=== PATIENT | male | born 1990 | race Caucasian/White ===

== ENCOUNTER 2019-01-16 14:47 | Emergency (ER) | payer OTHER ==
[2019-01-16] MEDS ORDERED: predniSONE 20 MG Tab PO ONE (15:43)
[2019-01-16] MEDS ORDERED: Ketorolac 60 MG/2 ML SDV IM ONE (15:43)
[2019-01-16] MEDS ORDERED: Cyclobenzaprine 10 MG Tab PO ONE (15:43)
--- NOTE | 2019-01-16 15:47 | EDM.PDOC ---
ED HPI GENERAL MEDICAL PROBLEM - General Chief Complaint: Back Pain or Injury Stated Complaint: BACK INJURY - VIA [facility] Time Seen by Provider: 01/16/19 15:30 Source of Information: Reports: Patient, EMS, Family History Limitations: Reports: No Limitations - History of Present Illness INITIAL COMMENTS - FREE TEXT/NARRATIVE: Alert 28 yo male present via EMS for acute right lower back pain which radiates across lower back. This am he was trying to move a coffee tablet and felt a twinge in his back. Patient laid down for a few hours and put ice on his back for 15 minutes. Patient got up to walk to the bathroom and had severe pain sitting down and getting up off the toilet. Patient's pain was so severe that he laid on the floor until EMS arrived to help him up. Patient was given Fentanyl 50mcg per EMS with minimal to no improvement of pain. Patient denies any lost of bowel or bladder function, he has a history of mild to moderate intermittent back pain in the pat but not as severe. 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 Patient is not work related. back Pain Score (Numeric/FACES): 6 - Related Data Allergies Allergy/AdvReac Type Severity Reaction Status Date / Time No Known Allergies Allergy Verified 01/16/19 15:08 Home Meds: Home Meds Cetirizine [ZyrTEC] 10 mg PO DAILY 01/16/19 [History] Cyclobenzaprine [Flexeril] 5 - 10 mg PO TID PRN 5 Days #15 tab 01/16/19 [Rx] Ketorolac [Toradol] 10 mg PO TID PRN 5 Days #15 tab 01/16/19 [Rx] predniSONE [Prednisone] 20 mg PO BID 5 Days #10 tablet 01/16/19 [Rx] Past Medical History - Past Health History Medical/Surgical History: Denies Medical/Surgical History Social & Family History - Tobacco Use Smoking Status *Q: Never Smoker - Caffeine Use Caffeine Use: Reports: Coffee, Soda - Recreational Drug Use Recreational Drug Use: No ED ROS GENERAL - Review of Systems Review Of Systems: ROS reveals no pertinent complaints other than HPI. ED EXAM,LOWER BACK PAIN/INJURY - Physical Exam Exam: See Below Exam Limited By: No Limitations General Appearance: Alert, WD/WN, Moderate Distress (worse with movement) Eye Exam: Bilateral Eye: EOMI, PERRL Ears: Normal External Exam, Hearing Grossly Normal Nose: Normal Inspection, Normal Mucosa, No Blood Throat/Mouth: Normal Inspection, Normal Lips, Normal Voice, No Airway Compromise Head: Atraumatic, Normocephalic Neck: Normal Inspection, Supple, Non-Tender, Full Range of Motion Respiratory/Chest: No Respiratory Distress, Lungs Clear, Normal Breath Sounds Cardiovascular: Normal Peripheral Pulses, Regular Rate, Rhythm GI/Abdominal: Normal Bowel Sounds, Soft, Non-Tender Back Exam: Normal Inspection, Decreased Range of Motion (limited by pain. ), Muscle Spasm (likely but unable to locate by palpation), Other (Unable to reproduce pain with palpation of paravertebral or latissisum muscles). No: CVA Tenderness (R), CVA Tenderness (L), Paraspinal Tenderness, Vertebral Tenderness Extremities: Normal Inspection, Normal Range of Motion, Non-Tender, No Pedal Edema, Normal Capillary Refill Neurological: Alert, Normal Mood/Affect, Normal Dorsiflexion, CN II-XII Intact, Normal Plantar Flexion, Normal Gait, Normal Reflexes, No Motor/Sensory Deficits , Oriented x 3 Psychiatric: Normal Affect, Normal Mood Skin Exam: Warm, Dry, Intact, Normal Color, No Rash Course - Vital Signs Last Recorded V/S: Last Vital Signs Temp 35.8 C 01/16/19 15:06 Pulse 65 01/16/19 15:06 Resp 20 01/16/19 15:06 BP 122/72 01/16/19 15:06 Pulse Ox 99 01/16/19 15:06 - Orders/Labs/Meds Meds: Medications Discontinued Medications Generic Name Dose Route Start Last Admin Trade Name Cheryle PRN Reason Stop Dose Admin Cyclobenzaprine HCl 10 mg 01/16/19 15:43 01/16/19 16:12 Flexeril PO 01/16/19 15:44 10 mg ONETIME ONE Administration Ketorolac Tromethamine 60 mg 01/16/19 15:43 01/16/19 16:12 Toradol IM 01/16/19 15:44 60 mg ONETIME ONE Administration Prednisone 60 mg 01/16/19 15:43 01/16/19 16:12 Prednisone PO 01/16/19 15:44 60 mg ONETIME ONE Administration - Re-Assessments/Exams Free Text/Narrative Re-Assessment/Exam: Patient was reexamined and able to walk to the bathroom with improvement of pain which is now under good control. He has continued discomfort but not a severe and tolerable at time of discharged. Discussed back pain symptoms that should bring him back to ER or follow-up with PCP. Pain has not lasted greater than 6 wks, no significant trauma, fall or injury. Patient has no systemic symptoms or hard neurologic concerns that would warrant further imaging at this time. Patient is comfortable going home at this time with . Home care instructions reviewed, medications and exercise reviewed. 01/16/19 16:50 Departure - Departure Time of Disposition: 16:38 Disposition: Home, Self-Care 01 Clinical Impression: Low back strain - Discharge Information Prescriptions: Cyclobenzaprine [Flexeril] 5 - 10 mg PO TID PRN 5 Days #15 tab PRN Reason: Muscle Spasm Ketorolac [Toradol] 10 mg PO TID PRN 5 Days #15 tab PRN Reason: Pain predniSONE [Prednisone] 20 mg PO BID 5 Days #10 tablet Instructions: Low Back Sprain, Lumbosacral Strain, Cryotherapy, Low Back Strain , Low Back Strain Rehab-SportsMed, Back Injury Prevention, [id number] Referrals: PCP,None [Primary Care Provider] - Forms: ED Department Discharge Additional Instructions: 1. Ice 15-20 minutes 3-4 times per day x 3 days then alternate with heat per comfort. 2. Prednisone 20mg am and pm x 5 days or 400mg every am x 5 days. 3. Toradol every 6 hours (not within 2 hrs) of prednisone duie to GI concerns eat with medications OR Ibuprofen 600-800mg every 6 hours with food for pain, swelling and inflammation (not same day as Toradol). 4. 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 5. Follow Low Back strain/spams and stretching/exercise information given. Continue regular activity walking and moving every 15-20 minute unless sleeping. 6. May add Tylenol 500-1000mg every 6 hours for mild pain if needed. 7. Call PCP of choice for evaluation in 2 weeks if continued symptoms sooner if not improving with treatment, medications and stretching/exercise instructions. - Problem List & Annotations (1) Low back strain SNOMED Code(s): 466653755 Code(s): S39.012A - STRAIN OF MUSCLE, FASCIA AND TENDON OF LOWER BACK, INIT Status: Acute Current Visit: Yes
== END 2019-01-16 17:18 | disposition home or self-care (01) ==
LOC: JP.ED 14:47
DX: S39.012A Strain of muscle, fascia and tendon of lower back, initial encounter (principal); X50.1XXA Overexertion from prolonged static or awkward postures, initial encounter; Y93.F2 Activity, caregiving, lifting
CPT/HCPCS: 96372; 99283; A9270; J1885

== ENCOUNTER 2020-04-19 13:02 | Emergency (ER) | payer SELFPAY ==
[2020-04-19] MEDS ORDERED: Nitroglycerin 0.4 MG Tab.SL SL ONE (14:09)
--- NOTE | 2020-04-19 14:45 | EDM.PDOC ---
ED HPI GENERAL MEDICAL PROBLEM - General Chief Complaint: ENT Problem Stated Complaint: OBJECT LODGED IN THROAT Time Seen by Provider: 04/19/20 14:30 Source of Information: Reports: Patient, RN History Limitations: Reports: No Limitations - History of Present Illness Onset: Today, Sudden Duration: Hour(s): Location: Reports: Neck Severity: Mild Improves with: Reports: None Worsens with: Reports: None Throat Pain Score (Numeric/FACES): 4 - Related Data Allergies Allergy/AdvReac Type Severity Reaction Status Date / Time No Known Allergies Allergy Verified 04/19/20 13:30 Home Meds: Home Meds Cetirizine [ZyrTEC] 10 mg PO DAILY 01/16/19 [History] Past Medical History - Past Health History Medical/Surgical History: Denies Medical/Surgical History - Past Surgical History GI Surgical History: Reports: Hernia Repair/Other Social & Family History - Tobacco Use Tobacco Use Status *Q: Never Tobacco User - Caffeine Use Caffeine Use: Reports: Coffee, Soda - Recreational Drug Use Recreational Drug Use: No ED ROS ENT - Review of Systems Review Of Systems: See Below Constitutional: Reports: No Symptoms HEENT: Reports: No Symptoms Respiratory: Reports: No Symptoms Cardiovascular: Reports: No Symptoms Endocrine: Reports: No Symptoms GI/Abdominal: Reports: Other (Cannot swallow elk steak that he ate earlier today. Spitting up saliva.) : Reports: No Symptoms Musculoskeletal: Reports: No Symptoms Skin: Reports: No Symptoms Neurological: Reports: No Symptoms Psychiatric: Reports: No Symptoms ED EXAM, ENT - Physical Exam Exam: See Below Exam Limited By: No Limitations General Appearance: Alert, No Apparent Distress, Anxious Ears: Normal External Exam Mouth/Throat: Normal Inspection, Normal Gums, Normal Teeth Head: Atraumatic, Normocephalic Neck: Normal Inspection, Supple Respiratory/Chest: No Respiratory Distress, No Accessory Muscle Use Cardiovascular: Regular Rate, Rhythm GI/Abdominal: Normal Bowel Sounds, Soft Back: Normal Inspection Extremities: Normal Inspection Neurological: Alert, Oriented Psychiatric: Normal Affect Skin: Warm, Dry Course - Vital Signs Text/Narrative:: 30-year-old male with a history of periodic difficulty swallowing in the past now has an elk steak he thinks stuck in his esophagus. It is high. I discussed with x-ray personnel and we will try a swallow of Gastrografin and see if we can identify an obstruction short of doing a fluoroscopy At approximately 3:45 PM, the patient can suddenly swallow and demonstrates to me that he can. Admission is not necessarily there for indicated and he will be referred to his PMD and on to further referral for esophageal evaluation if indicated. I did speak to Dr. Jacome who would have admitted if necessary Last Recorded V/S: Last Vital Signs Temp 35.6 C L 04/19/20 13:35 Pulse 91 04/19/20 15:09 Resp 14 04/19/20 13:35 BP 144/100 H 04/19/20 15:09 Pulse Ox 96 04/19/20 14:19 - Orders/Labs/Meds Meds: Medications Discontinued Medications Generic Name Dose Route Start Last Admin Trade Name Cheryle PRN Reason Stop Dose Admin Iopamidol 100 ml 04/19/20 15:00 04/19/20 15:05 Isovue-300 (61%) PO 04/19/20 15:01 100 ml ASDIRECTED ONE Administration Nitroglycerin 0.4 mg 04/19/20 14:09 04/19/20 14:15 Nitrostat SL 04/19/20 14:10 0.4 mg ONETIME ONE Administration Departure - Departure Time of Disposition: 16:04 Disposition: Home, Self-Care 01 Condition: Good Clinical Impression: Esophageal foreign body - Discharge Information Referrals: PCP,None [Primary Care Provider] - Forms: ED Department Discharge Additional Instructions: Follow-up with your physician for evaluation for further esophageal evaluation Sepsis Event Note (ED) - Evaluation Sepsis Screening Result: No Definite Risk - Focused Exam Vital Signs: Vital Signs Temp Pulse Resp BP BP Pulse Ox 04/19/20 15:09 91 144/100 H 04/19/20 14:19 104 H 138/84 96 04/19/20 14:15 135/91 H 04/19/20 13:35 35.6 C L 84 14 135/91 H 99
[2020-04-19] MEDS ORDERED: Iopamidol 612 MG/ML 50 ML SDV PO ONE (15:00)
--- NOTE | 2020-04-19 15:11 | CRLCR ---
INDICATION: Difficulty swallowing and possible L steak in the high esophagus. COMPARISON: None TECHNIQUE: The chest radiograph was performed. According to the tech notes, the patient drink 50 cc of Isovue 300 during the examination. FINDINGS: TUBES AND LINES: None. HEART AND MEDIASTINUM: The heart size is normal. The mediastinal contour appears normal for patient age. LUNGS AND PLEURAL SPACES: The lungs appear normal.The pleural spaces are unremarkable. OSSEOUS STRUCTURES: Age-appropriate appearance. No acute focal finding. IMPRESSION: No evidence of active pulmonary disease. I see no filling defects within the esophagus. However, as a single-view study without personal fluoroscopic observation, I do not consider this a diagnostic evaluation of the esophagus. Dictated by Abhilash Gomes MD @ Apr 19 2020 3:06PM Signed by Dr. Abhilash Gomes @ Apr 19 2020 3:09PM
--- NOTE | 2020-04-19 15:38 | CRLCR ---
Indication: Difficulty swallowing and possible elk steak in the high esophagus. Technique: A lateral soft tissue neck image was obtained. Oral contrast was administered, 50 cc of Isovue-300 and a single lateral radiograph was acquired Comparison: None Findings: I see no intraluminal filling defects. Impression: I see no intraluminal filling defects. However, as a single-view study without personal fluoroscopic observation, I do not consider this a diagnostic evaluation of the esophagus. I discussed this case with Dr. Pagan. He questions a filling defect in the distal esophagus on the chest. It is difficult to interpret the head or tail of the bolus without direct fluoroscopic observation. In the absence of a radiologist on site to perform a fluoroscopy study, one could attempt a repeated chest image with oral contrast. If the appearance of the distal esophagus is similar, it may mean that there is a foreign body in this area. Dictated by Abhilash Gomes MD @ Apr 19 2020 3:29PM Signed by Dr. Abhilash Gomes @ Apr 19 2020 3:37PM
== END 2020-04-19 16:15 | disposition home or self-care (01) ==
LOC: JP.ED 13:02
DX: T18.128A Food in esophagus causing other injury, initial encounter (principal)
CPT/HCPCS: 70360; 71045; 99283; A9270; Q9967

== ENCOUNTER 2024-02-02 08:22 | Emergency (ER) | payer OTHER ==
[2024-02-02] MEDS: Sodium Chloride 0.9% 1,000 ML IV ONE (09:34)
[2024-02-02 09:37] LABS: BASOPHILS ABSOLUTE AUTO 0.03 K/uL (0.00-0.10); BASOPHILS PERCENT AUTO 0.6 % (0.1-1.3); EOSINOPHILS ABSOLUTE AUTO 0.55 K/uL (0.00-0.40); EOSINOPHILS PERCENT AUTO 10.3 % (0.0-5.4); HEMATOCRIT 42.9 % (38.4-49.7); HEMOGLOBIN 15.4 g/dL (12.9-16.9); IMMATURE GRAN ABSOLUTE AUTO 0.03 K/uL (0.00-0.23); IMMATURE GRAN PERCENT AUTO 0.6 % (0.0-0.7); LYMPHOCYTES ABSOLUTE AUTO 1.36 K/uL (0.8-3.3); LYMPHOCYTES PERCENT AUTO 25.6 % (11.4-47.7); MEAN CORPUSCULAR HEMOGLOBIN 30.2 pg (31.6-35.5); MEAN CORPUSCULAR HGB CONC 35.9 g/dL (31.6-35.5); MEAN CORPUSCULAR VOLUME 84.1 fL (81.4-99.0); MONOCYTES ABSOLUTE AUTO 0.47 K/uL (0.20-0.90); MONOCYTES PERCENT AUTO 8.8 % (3.3-12.6); NEUTROPHILS ABSOLUTE AUTO 2.88 K/uL (1.0-7.6); NEUTROPHILS PERCENT AUTO 54.1 % (40.0-78.1); PLATELET COUNT,PLT 202 K/uL (130-375); WHITE BLOOD CELL COUNT,WBC 5.3 K/uL (3.2-11.0)
[2024-02-02 10:05] LABS: A/G RATIO 1.4 (1.2-2.2); ALANINE AMINOTRANSFERASE,ALT 32 U/L (12-78); ALBUMIN 4.2 g/dL (3.4-5.0); ALKALINE PHOSPHATASE 87 U/L (46-116); ANION GAP 4.1 mmol/L (5.0-14.0); ASPARTATE AMNIOTRANSFERASE,AST 21 U/L (15-37); BILIRUBIN TOTAL 0.8 mg/dL (0.2-1.0); BLOOD UREA NITROGEN,BUN 13 mg/dL (7-18); CALCIUM 9.2 mg/dL (8.5-10.1); CARBON DIOXIDE,CO2 32 mmol/L (21-32); CHLORIDE,CL 107 mmol/L (100-108); CREATININE 1.2 mg/dL (0.8-1.3); EST CRCL DRUG DOSING (CG) 89.56 mL/min; ESTIMATED GFR 81 mL/min (>60); GLUCOSE RANDOM 108 mg/dL (74-106); POTASSIUM,K 3.9 mmol/L (3.6-5.2); PROTEIN TOTAL,TP 7.2 g/dL (6.4-8.2); SODIUM,NA 143 mmol/L (140-148)
[2024-02-02] MEDS: Glucagon,Human Recombinant 1 MG Vial IM ONE ×2 (11:27→12:34)
[2024-02-02] MEDS: Ondansetron 4 MG/2 ML SDV IVPUSH ONE (13:59)
[2024-02-02] MEDS: Sodium Chloride 0.9% 80 ML IV SCH (14:53)
[2024-02-02] MEDS: Sodium Chloride 0.9% 10 ML Syringe FLUSH ONE (14:53)
[2024-02-02] MEDS: Iopamidol 612 MG/ML 100 ML Bottle IV SCH (14:53)
== END 2024-02-02 15:23 | disposition home or self-care (01) ==
LOC: JP.ED 08:22
DX: T18.108A Unspecified foreign body in esophagus causing other injury, initial encounter (principal); Z79.899 Other long term (current) drug therapy
CPT/HCPCS: 36415; 71046; 71260; 74177; 80053; 80307; 84484; 85025; 93005; 96361; 96372; 96374; 99284; J1610; J2405; J3490; J7030; Q9967

== ENCOUNTER 2024-02-16 06:28 | Day surgery (SDC) | payer OTHER ==
[2024-02-16] MEDS ORDERED: Midazolam 1 MG/ML 2 ML SDV ONE (07:26)
[2024-02-16] MEDS ORDERED: fentaNYL 100 MCG/2 ML SDV ONE (07:26)
[2024-02-16] MEDS ORDERED: Propofol 200 MG/20 ML SDV ONE (07:26)
[2024-02-16] MEDS: Lactated Ringers 1,000 ML IV SCH (07:34)
== END 2024-02-16 11:05 | disposition home or self-care (01) ==
LOC: JP.SDS 06:28
PROVIDERS: ATTEND Surgery
DX: K21.00 Gastro-esophageal reflux disease with esophagitis, without bleeding (principal); R13.10 Dysphagia, unspecified; K22.89 Other specified disease of esophagus
CPT/HCPCS: 00731; 43239; J2250; J2704; J3010; J7120

== ENCOUNTER 2024-09-15 21:08 | Emergency (ER) | payer OTHER ==
[2024-09-15] MEDS: Lidocaine 1% with EPINEPHrine 1:100,000 50 ML MDV INFILT STA (21:26)
[2024-09-15] MEDS: Diphtheria,Pertussis(Acell),Tetanus Vaccine 0.5 ML Syringe IM ONE (21:26)
== END 2024-09-15 21:52 | disposition home or self-care (01) ==
LOC: JP.ED 21:08
DX: S61.011A Laceration without foreign body of right thumb without damage to nail, initial encounter (principal); Z23 Encounter for immunization; Z86.16 Personal history of COVID-19; W26.8XXA Contact with other sharp object(s), not elsewhere classified, initial encounter
CPT/HCPCS: 12001; 90471; 90715; 99282-25